=== PATIENT | male | born 1985 | race Caucasian/White ===

== ENCOUNTER 2020-08-28 23:03 | Emergency (ER) | payer OTHER ==
[~2020-08-28] VITALS: Ht 160 cm; Wt 77.1 kg
[2020-08-28 23:04] VITALS: BP 117/75
[2020-08-29] MEDS ORDERED: IBUPROFEN 800800 M1 PO (01:31)
[2020-08-29] MEDS ORDERED: NORCO 5-325 TA1 EAC2 PO (01:31)
[2020-08-29] MEDS ORDERED: TOBRAMYCIN SULFA5 M1 OPHTHALMIC (01:31)
== END 2020-08-29 01:52 | disposition home or self-care (01) ==
LOC: ER 23:03
DX: S05.02XA Injury of conjunctiva and corneal abrasion without foreign body, left eye, initial encounter (principal); X58.XXXA Exposure to other specified factors, initial encounter; Y93.89 Activity, other specified; Y92.89 Other specified places as the place of occurrence of the external cause; Y99.8 Other external cause status